=== PATIENT | male | born 1935 | race Caucasian/White ===

== ENCOUNTER → 2016-08-12 | Outpatient (CLI) | payer OTHER ==
[~2016-08-12] MED LIST: BISA10SU45 RE; CHOL1TAB42 PO; FEXO-42 PO; FOLI1TAB6 PO; HYD1TP PR; HYDR12.527 PO; LUBI8CAP4 PO; METH2.5T3 PO; NOR10T PO; PRE5T PO; TAM04C PO; TEMA15CA91 PO
[2016-08-12 13:49] LABS: Basophils # (auto) 0 uL; Basophils % (auto) 0.3 % (0.0-2.0); Eosinophils # (auto) 0.1 uL; Eosinophils % (auto) 1.3 % (0.0-7.0); Hematocrit 44.9 % (41.0-53.0); Hemoglobin 14.5 g/dL (13.5-17.5); Lymphocytes # (auto) 1.1 uL; Lymphocytes % (auto) 14.5 % (10.0-50.0); Mean Corpuscular Hemoglobin 30.2 pg (28.0-32.0); Mean Corpuscular Hgb Conc. 32.4 g/dL (32.0-36.0); Mean Corpuscular Volume 93.2 fL (80.0-100.0); Mean Platelet Volume 7.9 fL (7.4-10.4); Monocytes # (auto) 0.6 uL; Monocytes % (auto) 7.3 % (0.0-12.0); Neutrophils # (auto) 6.1 uL; Neutrophils % (auto) 76.6 % (37.0-80.0); Platelet Count (auto) 225 10^3/uL (140-450); Red Cell Distribution Width 15.5 % (11.6-16.0); White Blood Cell 7.9 10^3/uL (4.4-10.8)
[2016-08-12 14:01] LABS: Albumin 3.7 g/dL (3.4-5.0); BUN/Creatinine Ratio 19.7; Bilirubin, Total 0.7 mg/dL (0.2-1.0); Calcium 8.9 mg/dL (8.5-10.1); Potassium 3.7 mmol/L (3.5-5.1); Total Protein 6.5 g/dL (6.4-8.2)
[2016-08-12 14:02] LABS: INR 1.04 (0.9-1.15); Partial Thromboplastin Time 25.9 sec (22.64-33.71); Prothrombin Time 10.7 sec (9.37-12.3)
== END | disposition home or self-care (01) ==
LOC: LAB 13:20
PROVIDERS: ATTEND Internal Medicine Cardiovascular Disease
DX: I44.39 Other atrioventricular block (principal); Z01.818 Encounter for other preprocedural examination
CPT/HCPCS: 36415; 80053; 85025; 85049; 85610; 85730

== ENCOUNTER → 2016-11-08 | Outpatient (CLI) | payer OTHER ==
[~2016-11-08] MED LIST changes: +DICL1GEL26 TD; -HYDR12.527 PO; +LINA290C OR; -LUBI8CAP4 PO
[2016-11-08 10:42] LABS: Urine RBC None Seen /hpf (0 - 3)
[2016-11-08 11:05] LABS: Urine Bilirubin Negative (Negative); Urine Blood Negative /uL (Negative); Urine Color Yellow (Yellow); Urine Glucose Normal (Normal); Urine Ketone Negative (Negative); Urine Mucus FEW (None Seen); Urine Nitrite Negative (Negative); Urine Squamous Epithelial Cell FEW /hpf (<5); Urine Urobilinogen Normal (Negative)
[2016-11-08 11:06] LABS: Basophils # (auto) 0 uL; Basophils % (auto) 0.4 % (0.0-2.0); Eosinophils # (auto) 0.1 uL; Eosinophils % (auto) 1.4 % (0.0-7.0); Hematocrit 49.5 % (41.0-53.0); Hemoglobin 15.8 g/dL (13.5-17.5); Lymphocytes # (auto) 1.4 uL; Lymphocytes % (auto) 17.6 % (10.0-50.0); Mean Corpuscular Hemoglobin 30.7 pg (28.0-32.0); Mean Corpuscular Volume 95.9 fL (80.0-100.0); Mean Platelet Volume 8.5 fL (7.4-10.4); Monocytes # (auto) 0.5 uL; Monocytes % (auto) 5.9 % (0.0-12.0); Neutrophils # (auto) 5.8 uL; Neutrophils % (auto) 74.7 % (37.0-80.0); Platelet Count (auto) 237 10^3/uL (140-450); Red Cell Distribution Width 14.8 % (11.6-16.0); White Blood Cell 7.8 10^3/uL (4.4-10.8)
[2016-11-08 11:13] LABS: BUN/Creatinine Ratio 15.8; Bilirubin, Total 0.7 mg/dL (0.2-1.0); Calcium 9.3 mg/dL (8.5-10.1); Potassium 3.9 mmol/L (3.5-5.1); Total Protein 7.4 g/dL (6.4-8.2)
== END | disposition home or self-care (01) ==
LOC: LAB 10:22
PROVIDERS: ATTEND Internal Medicine
DX: Z00.00 Encounter for general adult medical examination without abnormal findings (principal); M51.16 Intervertebral disc disorders with radiculopathy, lumbar region; J44.1 Chronic obstructive pulmonary disease with (acute) exacerbation
CPT/HCPCS: 36415; 80053; 80061; 81001; 82306; 84153; 84154; 84443; 85025; G0434

== ENCOUNTER 2016-11-17 06:17 | Inpatient (IN) | payer OTHER ==
[~2016-11-17] VITALS: Ht 172.7 cm; Wt 82.2 kg
[2016-11-17 07:40] LABS: Basophils # (auto) 0 uL; Basophils % (auto) 0.5 % (0.0-2.0); Eosinophils # (auto) 0.1 uL; Eosinophils % (auto) 1.9 % (0.0-7.0); Hematocrit 47.6 % (41.0-53.0); Hemoglobin 15.3 g/dL (13.5-17.5); Lymphocytes # (auto) 1.5 uL; Lymphocytes % (auto) 19.9 % (10.0-50.0); Mean Corpuscular Hemoglobin 30.3 pg (28.0-32.0); Mean Corpuscular Hgb Conc. 32.2 g/dL (32.0-36.0); Mean Corpuscular Volume 94.3 fL (80.0-100.0); Mean Platelet Volume 8.6 fL (7.4-10.4); Monocytes # (auto) 0.6 uL; Monocytes % (auto) 7.7 % (0.0-12.0); Neutrophils # (auto) 5.3 uL; Platelet Count (auto) 221 10^3/uL (140-450); White Blood Cell 7.6 10^3/uL (4.4-10.8)
[2016-11-17] MEDS ORDERED: ONDANSETRON HCL 4 MG/2 ML VIAL IV ONE (07:45)
[2016-11-17] MEDS ORDERED: ASPirin 81 mg TAB PO ONE (07:45)
[2016-11-17 07:54] LABS: Albumin 3.7 g/dL (3.4-5.0); Alkaline Phosphatase 65 U/L (45-117); Amylase 34 U/L (25-115); Anion Gap 8 (5-15); Aspartate Aminotransferase 27 U/L (15-37); BUN/Creatinine Ratio 16.4; Bilirubin, Total 0.5 mg/dL (0.2-1.0); Blood Urea Nitrogen 12 mg/dL (7-18); Carbon Dioxide 33 mmol/L (21-32); Chloride 104 mmol/L (98-107); GFR African American 132 mL/min; GFR Non-African American 109 mL/min; Glucose 107 mg/dL (74-106); Potassium 3.5 mmol/L (3.5-5.1); Sodium 145 mmol/L (136-145); Total Protein 6.9 g/dL (6.4-8.2)
[2016-11-17 08:06] LABS: INR 1.06 (0.9-1.15); Partial Thromboplastin Time 27.1 sec (22.64-33.71); Prothrombin Time 11.4 sec (9.37-12.3)
[2016-11-17 08:53] LABS: B-Type Natriuretic Peptide 42.65 pg/mL (0-100)
[2016-11-17 09:03] LABS: Temperature: 22.5 C (20.0-25.0)
[2016-11-17] MEDS ORDERED: NITROGLYCERIN 0.4 MG SL TAB SL PRN (09:15)
[2016-11-17] MEDS ORDERED: METHOTREXATE 2.5 MG TAB PO SCH (09:15)
[2016-11-17] MEDS ORDERED: DICLOFENAC SODIUM 1% TD SCH (09:15)
[2016-11-17] MEDS ORDERED: MORPHINE SULF INJ 2 MG/ML SYRINGE 1ML IV PRN (09:15)
[2016-11-17] MEDS ORDERED: LORazepam 0.5 MG TAB PO PRN (09:15)
[2016-11-17] MEDS ORDERED: TEMAZEPAM 15 MG CAP PO PRN (09:15)
[2016-11-17] MEDS ORDERED: [UNRECOGNIZED DRUG - REMARK] PO SCH (10:00)
[2016-11-17] MEDS ORDERED: FAMOTIDINE 20 MG TAB PO SCH (10:00)
[2016-11-17] MEDS ORDERED: LINACLOTIDE BASE OR SCH (10:00)
[2016-11-17] MEDS ORDERED: CHOLECALCIFEROL 2000 UNIT PO SCH (10:00)
[2016-11-17 10:03] LABS: Urine Bilirubin Negative (Negative); Urine Blood Negative /uL (Negative); Urine Color Yellow (Yellow); Urine Glucose Normal (Normal); Urine Ketone TRACE (Negative); Urine Mucus MANY (None Seen); Urine Nitrite Negative (Negative); Urine RBC 3 /hpf (0 - 3); Urine Squamous Epithelial Cell FEW /hpf (<5); Urine Urobilinogen Normal (Negative)
[2016-11-17] MEDS: ASPirin 81 mg TAB PO SCH (10:15)
[2016-11-17] MEDS: FEXOFENADINE HCL 60 MG TAB PO SCH (10:15)
[2016-11-17] MEDS: FOLIC ACID 1 MG TAB PO SCH (10:15)
[2016-11-17] MEDS: CHOLECALCIFEROL (VITD3) 1,000 UNIT TAB PO SCH (10:15)
[2016-11-17] MEDS: TAMSULOSIN HYDROCHLORIDE 0.4 MG CAP PO SCH ×2 (10:15→21:58)
[2016-11-17] MEDS ORDERED: LACT10SO PO (11:01)
[2016-11-17] MEDS ORDERED: LUBI24CA6 PO (11:01)
[2016-11-17] MEDS: DICLOFENAC SODIUM 1% TOP SCH ×3 (12:00→21:59)
[2016-11-17] MEDS: SODIUM CHLORIDE 0.9% 1,000 ML IV SCH (12:00)
[2016-11-17 13:00] VITALS: BP 137/92
[2016-11-17] MEDS: predniSONE 5 MG TAB PO ONE ×2 (14:00→14:56)
[2016-11-17] MEDS ORDERED: PANTOPRAZOLE 40 MG TAB PO ONE (14:00)
[2016-11-17] MEDS ORDERED: predniSONE 1 MG TAB PO ONE (14:45)
[2016-11-17] MEDS: SIMETHICONE 40 MG/0.6 ML ORAL DROP PO SCH ×3 (14:55→21:59)
[2016-11-17 17:00] VITALS: BP 119/77
[2016-11-17] MEDS: ACETAMINOPHEN 500 MG TAB PO PRN (17:13)
[2016-11-17] MEDS: ATORVASTATIN 20 MG TAB PO SCH (21:59)
[2016-11-17 22:00] VITALS: BP 134/74
[2016-11-18] VITALS (7 sets, daily range): BP systolic 108–125; BP diastolic 59–79
[2016-11-18] MEDS: SODIUM CHLORIDE 0.9% 1,000 ML IV SCH (02:23)
[2016-11-18] MEDS: MORPHINE SULFATE 4 MG/ML SYRG IV PRN ×5 (02:31→23:04)
[2016-11-18] MEDS: ACETAMINOPHEN 500 MG TAB PO PRN (05:03)
[2016-11-18] MEDS: HYDROcodone-ACET 5/325MG TAB PO PRN (05:04)
[2016-11-18] MEDS: DICLOFENAC SODIUM 1% TOP SCH ×4 (05:59→22:00)
[2016-11-18] MEDS: SIMETHICONE 40 MG/0.6 ML ORAL DROP PO SCH ×4 (05:59→22:12)
[2016-11-18] MEDS: predniSONE 1 MG TAB PO SCH (06:50)
[2016-11-18] MEDS ORDERED: PATIENTS OWN MEDICATION (Folic Acid 1 MG) PO SCH ×2 (07:00)
[2016-11-18] MEDS ORDERED: predniSONE 5 MG TAB PO SCH (07:00)
[2016-11-18] MEDS: ASPirin 81 mg TAB PO SCH (09:55)
[2016-11-18] MEDS: PANTOPRAZOLE 40 MG TAB PO SCH (09:56)
[2016-11-18] MEDS: CHOLECALCIFEROL (VITD3) 1,000 UNIT TAB PO SCH (09:56)
[2016-11-18] MEDS: TAMSULOSIN HYDROCHLORIDE 0.4 MG CAP PO SCH ×2 (09:56→22:11)
[2016-11-18] MEDS: FOLIC ACID 1 MG TAB PO SCH (09:56)
[2016-11-18] MEDS: FEXOFENADINE HCL 60 MG TAB PO SCH (09:56)
[2016-11-18] MEDS: GABAPENTIN 300 MG CAP PO SCH ×2 (14:14→22:12)
[2016-11-18] MEDS: ATORVASTATIN 20 MG TAB PO SCH (22:11)
[2016-11-19 05:02] VITALS: BP 98/50
[2016-11-19] MEDS: SIMETHICONE 40 MG/0.6 ML ORAL DROP PO SCH ×4 (05:53→22:34)
[2016-11-19] MEDS: DICLOFENAC SODIUM 1% TOP SCH ×4 (05:53→22:34)
[2016-11-19] MEDS: GABAPENTIN 300 MG CAP PO SCH ×3 (05:54→22:34)
[2016-11-19] MEDS: predniSONE 1 MG TAB PO SCH (06:48)
[2016-11-19 08:00] VITALS: BP 127/72
[2016-11-19 09:03] VITALS: BP 127/72
[2016-11-19] MEDS: CHOLECALCIFEROL (VITD3) 1,000 UNIT TAB PO SCH (10:27)
[2016-11-19] MEDS: MORPHINE SULFATE 4 MG/ML SYRG IV PRN ×3 (10:27→23:10)
[2016-11-19] MEDS: TAMSULOSIN HYDROCHLORIDE 0.4 MG CAP PO SCH ×2 (10:28→22:33)
[2016-11-19] MEDS: FEXOFENADINE HCL 60 MG TAB PO SCH (10:28)
[2016-11-19] MEDS: FOLIC ACID 1 MG TAB PO SCH (10:28)
[2016-11-19] MEDS: ASPirin 81 mg TAB PO SCH (10:28)
[2016-11-19] MEDS: PANTOPRAZOLE 40 MG TAB PO SCH (10:28)
[2016-11-19 13:00] VITALS: BP 124/74
[2016-11-19 16:43] VITALS: BP 104/64
[2016-11-19 21:32] VITALS: BP 112/63
[2016-11-19] MEDS: ATORVASTATIN 20 MG TAB PO SCH (22:33)
[2016-11-20] VITALS (7 sets, daily range): BP systolic 102–130; BP diastolic 66–76
[2016-11-20] MEDS: MORPHINE SULFATE 4 MG/ML SYRG IV PRN ×2 (03:15→08:58)
[2016-11-20] MEDS: DICLOFENAC SODIUM 1% TOP SCH ×4 (06:00→21:16)
[2016-11-20] MEDS: SIMETHICONE 40 MG/0.6 ML ORAL DROP PO SCH ×3 (06:45→21:03)
[2016-11-20] MEDS: GABAPENTIN 300 MG CAP PO SCH ×3 (06:45→21:03)
[2016-11-20] MEDS: predniSONE 1 MG TAB PO SCH (06:55)
[2016-11-20] MEDS: ASPirin 81 mg TAB PO SCH (10:18)
[2016-11-20] MEDS: CHOLECALCIFEROL (VITD3) 1,000 UNIT TAB PO SCH (10:19)
[2016-11-20] MEDS: TAMSULOSIN HYDROCHLORIDE 0.4 MG CAP PO SCH ×2 (10:19→21:03)
[2016-11-20] MEDS: FOLIC ACID 1 MG TAB PO SCH (10:19)
[2016-11-20] MEDS: PANTOPRAZOLE 40 MG TAB PO SCH (10:19)
[2016-11-20] MEDS: FEXOFENADINE HCL 60 MG TAB PO SCH (10:19)
[2016-11-20] MEDS: ALBUTEROL SULF 2.5 MG/0.5ML(0.5%) NEB SOLN NEB SCH ×2 (10:49→18:11)
[2016-11-20] MEDS: IPRATROPIUM BROM 0.5 MG/2.5ML INH SOL NEB SCH ×2 (10:49→18:11)
[2016-11-20] MEDS: ACETYLCYSTEINE 10 %(100MG/ML) SOL 4ML NEB SCH ×2 (18:11→22:00)
[2016-11-20] MEDS: ATORVASTATIN 20 MG TAB PO SCH (21:03)
[2016-11-21] MEDS: MORPHINE SULFATE 4 MG/ML SYRG IV PRN ×2 (03:24→09:59)
[2016-11-21] MEDS: HYDROcodone-ACET 5/325MG TAB PO PRN (04:27)
[2016-11-21 05:54] VITALS: BP 108/67
[2016-11-21] MEDS: ALBUTEROL SULF 2.5 MG/0.5ML(0.5%) NEB SOLN NEB SCH ×3 (05:54→14:13)
[2016-11-21] MEDS: ACETYLCYSTEINE 10 %(100MG/ML) SOL 4ML NEB SCH ×4 (05:54→14:14)
[2016-11-21] MEDS: IPRATROPIUM BROM 0.5 MG/2.5ML INH SOL NEB SCH ×3 (05:54→14:13)
[2016-11-21] MEDS: DICLOFENAC SODIUM 1% TOP SCH ×2 (06:00→12:00)
[2016-11-21] MEDS: SIMETHICONE 40 MG/0.6 ML ORAL DROP PO SCH ×2 (06:21→12:00)
[2016-11-21] MEDS: predniSONE 1 MG TAB PO SCH (06:22)
[2016-11-21] MEDS: GABAPENTIN 300 MG CAP PO SCH ×2 (06:22→14:00)
[2016-11-21 08:00] VITALS: BP 113/67
[2016-11-21] MEDS: FOLIC ACID 1 MG TAB PO SCH (09:47)
[2016-11-21] MEDS: TAMSULOSIN HYDROCHLORIDE 0.4 MG CAP PO SCH (09:47)
[2016-11-21] MEDS: PANTOPRAZOLE 40 MG TAB PO SCH (09:47)
[2016-11-21] MEDS: ASPirin 81 mg TAB PO SCH (09:48)
[2016-11-21 10:00] VITALS: BP 113/67
[2016-11-21] MEDS: CHOLECALCIFEROL (VITD3) 1,000 UNIT TAB PO SCH (10:00)
[2016-11-21] MEDS: FEXOFENADINE HCL 60 MG TAB PO SCH (10:00)
[2016-11-21 11:18] VITALS: BP 113/67
== END 2016-11-21 14:45 | disposition home or self-care (01) | DRG 389 ==
LOC: ER 06:17 → EDBD 06:17 → TELE 06:18 → TELE-E-ADS 10:22 → TELE-CENTR 12:09 → CENTRAL 11-19 04:18
PROVIDERS: ADMIT Internal Medicine; ATTEND Internal Medicine
DX: K56.41 Fecal impaction (principal); J96.10 Chronic respiratory failure, unspecified whether with hypoxia or hypercapnia; K58.9 Irritable bowel syndrome, unspecified; J44.9 Chronic obstructive pulmonary disease, unspecified; K21.9 Gastro-esophageal reflux disease without esophagitis; E78.5 Hyperlipidemia, unspecified; K57.30 Diverticulosis of large intestine without perforation or abscess without bleeding; I11.9 Hypertensive heart disease without heart failure; M47.816 Spondylosis without myelopathy or radiculopathy, lumbar region; G89.29 Other chronic pain; I70.0 Atherosclerosis of aorta; E66.9 Obesity, unspecified; N40.0 Benign prostatic hyperplasia without lower urinary tract symptoms; K76.0 Fatty (change of) liver, not elsewhere classified; M54.9 Dorsalgia, unspecified; M06.9 Rheumatoid arthritis, unspecified; Z95.0 Presence of cardiac pacemaker; Z87.891 Personal history of nicotine dependence; Z80.9 Family history of malignant neoplasm, unspecified; Z86.79 Personal history of other diseases of the circulatory system; Z79.899 Other long term (current) drug therapy; Z88.1 Allergy status to other antibiotic agents; Z88.2 Allergy status to sulfonamides; Z68.27 Body mass index [BMI] 27.0-27.9, adult
CPT/HCPCS: 36415; 71020; 72100; 74176; 80053; 81001; 82150; 82378; 82550; 83690; 83735; 83880; 84484; 85025; 85379; 85610; 85652; 85730; 86141; 87070; 87205; 93005; 94640; 94761; 96374; J2405

== ENCOUNTER → 2017-01-03 | Outpatient (CLI) | payer OTHER ==
[~2017-01-03] MED LIST changes: -BISA10SU45 RE; -FEXO-42 PO; -HYD1TP PR; +LACT10SO3 PO; +LUBI24CA6 PO
== END | disposition home or self-care (01) ==
LOC: LAB 09:15
PROVIDERS: ATTEND Internal Medicine
DX: R91.1 Solitary pulmonary nodule (principal)
CPT/HCPCS: 36415; 82565; 84520

== ENCOUNTER 2017-01-26 21:14 | Emergency (ER) | payer OTHER ==
[~2017-01-26] VITALS: Ht 172.7 cm; Wt 83.0 kg
[2017-01-27] MEDS ORDERED: HYDROmorphone HCL 2 MG/ML VL IV ONE ×2 (02:45→05:00)
[2017-01-27 03:12] LABS: Basophils # (auto) 0 uL; Basophils % (auto) 0.4 % (0.0-2.0); CONDITION Y; Eosinophils # (auto) 0.2 uL; Eosinophils % (auto) 2.5 % (0.0-7.0); Hemoglobin 14.9 g/dL (13.5-17.5); Lymphocytes # (auto) 1.2 uL; Lymphocytes % (auto) 17.1 % (10.0-50.0); Mean Corpuscular Hemoglobin 30.3 pg (28.0-32.0); Mean Corpuscular Hgb Conc. 32.3 g/dL (32.0-36.0); Mean Corpuscular Volume 93.7 fL (80.0-100.0); Mean Platelet Volume 8.7 fL (7.4-10.4); Monocytes # (auto) 0.7 uL; Neutrophils # (auto) 4.7 uL; Platelet Count (auto) 188 10^3/uL (140-450); Red Cell Distribution Width 14.7 % (11.6-16.0); White Blood Cell 6.8 10^3/uL (4.4-10.8)
[2017-01-27] MEDS ORDERED: ONDANSETRON HCL 4 MG/2 ML VIAL IV ONE (03:15)
[2017-01-27 03:33] LABS: Albumin 3.5 g/dL (3.4-5.0); BUN/Creatinine Ratio 26.7; Calcium 8.4 mg/dL (8.5-10.1); Potassium 3.6 mmol/L (3.5-5.1)
[2017-01-27 03:35] LABS: Bilirubin, Total 0.4 mg/dL (0.2-1.0); Total Protein 6.9 g/dL (6.4-8.2)
[2017-01-27 07:02] VITALS: BP 116/66
== END 2017-01-27 08:27 | disposition home or self-care (01) ==
LOC: EDBD 21:14 → ER 21:18
DX: B02.9 Zoster without complications (principal); R51 Headache; M54.2 Cervicalgia; M79.2 Neuralgia and neuritis, unspecified; J44.9 Chronic obstructive pulmonary disease, unspecified; K21.9 Gastro-esophageal reflux disease without esophagitis; I10 Essential (primary) hypertension; E78.5 Hyperlipidemia, unspecified; Z87.891 Personal history of nicotine dependence; Z88.1 Allergy status to other antibiotic agents; Z88.2 Allergy status to sulfonamides
CPT/HCPCS: 36415; 71250; 74176; 80053; 83690; 85025; 96374; 96375; 96376; 99285; J1170; J2405

== ENCOUNTER 2017-10-03 06:47 | Day surgery (SDC) | payer OTHER ==
[2017-09-28 11:29] LABS: Basophils # (auto) 0 uL; Basophils % (auto) 0.6 % (0.0-2.0); Eosinophils # (auto) 0.1 uL; Eosinophils % (auto) 1.7 % (0.0-7.0); Hematocrit 41.6 % (41.0-53.0); Hemoglobin 13.5 g/dL (13.5-17.5); Lymphocytes % (auto) 14.8 % (10.0-50.0); Mean Corpuscular Hemoglobin 30.8 pg (28.0-32.0); Mean Corpuscular Hgb Conc. 32.4 g/dL (32.0-36.0); Mean Corpuscular Volume 94.8 fL (80.0-100.0); Monocytes # (auto) 0.7 uL; Neutrophils # (auto) 4.7 uL; Neutrophils % (auto) 72.9 % (37.0-80.0); Nucleated Red Blood Cells % 0.1 %; Platelet Count (auto) 157 10^3/uL (140-450); Red Blood Cells 4.38 10^6/uL (4.5-5.90); Red Cell Distribution Width 14.2 % (11.8-14.3); White Blood Cell 6.5 10^3/uL (4.4-10.8)
[2017-09-28 11:46] LABS: Albumin 3.5 g/dL (3.4-5.0); BUN/Creatinine Ratio 18.8; Bilirubin, Total 0.4 mg/dL (0.2-1.0); Calcium 8.7 mg/dL (8.5-10.1); INR 0.99 (0.9-1.15); Partial Thromboplastin Time 27.3 sec (22.64-33.71); Potassium 3.9 mmol/L (3.5-5.1); Prothrombin Time 10.8 sec (9.37-12.3); Total Protein 6.5 g/dL (6.4-8.2)
[~2017-10-03] VITALS: Ht 170.2 cm; Wt 81.6 kg
[~2017-10-03 06:47] MED LIST changes: +BISA-13 PO; -DICL1GEL26 TD; -LACT10SO3 PO; -LINA290C OR; +LOVA20TA4 PO; -LUBI24CA6 PO; +PYRI1TAB11 PO; -TEMA15CA91 PO
[2017-10-03] MEDS ORDERED: ceFAZolin 1GM/50ML 50 ML IV ONE (07:03)
[2017-10-03] MEDS ORDERED: MIDAZOLAM HCL 1MG/1ML-2 ML VIAL ONE (07:52)
[2017-10-03] MEDS ORDERED: ONDANSETRON HCL 4 MG/2 ML VIAL ONE (07:53)
[2017-10-03] MEDS ORDERED: SODIUM CHLORIDE LOCK 10 ML ONE (07:53)
[2017-10-03] MEDS ORDERED: PROPOFOL 10 MG/ML 20 ML IV ONE (07:53)
[2017-10-03] MEDS ORDERED: fentaNYL CITRATE 100 MCG/2 ML VL ONE (07:53)
[2017-10-03] MEDS ORDERED: HYDROmorphone HCL 2 MG/ML VL IV PRN (09:00)
[2017-10-03] MEDS ORDERED: METOCLOPRAMIDE HCL 5MG/ml INJ 2ml VIAL IV ONE (09:00)
[2017-10-03 10:30] VITALS: BP 110/72
[2017-10-31] MEDS ORDERED: PERCOT PO (15:44)
[2017-10-31] MEDS ORDERED: CIPR-217 PO (15:44)
== END 2017-10-03 10:40 | disposition home or self-care (01) ==
LOC: SUR 06:47
PROVIDERS: ATTEND Urology
DX: N20.1 Calculus of ureter (principal); J44.9 Chronic obstructive pulmonary disease, unspecified; Z95.0 Presence of cardiac pacemaker; M06.9 Rheumatoid arthritis, unspecified; Z88.1 Allergy status to other antibiotic agents; Z88.2 Allergy status to sulfonamides; I25.10 Atherosclerotic heart disease of native coronary artery without angina pectoris; E66.9 Obesity, unspecified
CPT/HCPCS: 36415; 50590; 80053; 85025; 85610; 85730; J0690; J2250; J2405; J2704; J3010

== ENCOUNTER 2018-02-15 05:54 | Day surgery (SDC) | payer OTHER ==
[~2018-02-15] VITALS: Ht 30.5 cm; Wt 0.5 kg
[~2018-02-15 05:54] MED LIST changes: +ALBUAER3 IN; -CHOL1TAB42 PO; +CHOL20007 PO; +IPRIH IN; +MET25T PO; -PYRI1TAB11 PO; +SOTA80TA PO
[2018-02-15] MEDS ORDERED: IOHEXOL 180 MG/ML 20ML VIAL IJ ONE (06:52)
[2018-02-15] MEDS ORDERED: IOHEXOL 300 MG/ML 100ML BOTTLE IJ ONE (06:52)
[2018-02-15] MEDS ORDERED: fentaNYL CITRATE 100 MCG/2 ML VL ONE (07:02)
[2018-02-15] MEDS ORDERED: PHENYLEPHRINE HCL 10 MG/ML VL ONE (07:02)
[2018-02-15] MEDS ORDERED: ePHEDrine SULFATE 50 MG/ML AMP ONE (07:02)
[2018-02-15] MEDS ORDERED: ROCURONIUM 10MG/ML 10ML VIAL IV ONE (07:03)
[2018-02-15] MEDS ORDERED: LIDOCAINE HCL 2 %PF INJ 10ML AMP IJ ONE (07:03)
[2018-02-15] MEDS ORDERED: ETOMIDATE (2MG/ML) 20ML VIAL IV ONE (07:04)
[2018-02-15] MEDS ORDERED: ceFAZolin 1GM/50ML 50 ML IV ONE (07:16)
[2018-02-15] MEDS ORDERED: GLYCOPYRROLATE 0.2 MG/ML 1ML VIAL ONE (08:23)
[2018-02-15] MEDS ORDERED: DEXAMETHASONE SOD PHOS 10MG/1ML VIAL INJ ONE (08:23)
[2018-02-15] MEDS ORDERED: NEOSTIGMINE 1 MG/ML INJ (10mg/10ML VIAL) ONE (08:23)
[2018-02-15] MEDS ORDERED: ONDANSETRON HCL 4 MG/2 ML VIAL IV ONE (08:45)
[2018-02-15] MEDS ORDERED: NALOXONE HCL 0.4 MG/ML VIAL IV PRN (08:45)
[2018-02-15] MEDS ORDERED: ONDANSETRON HCL 4 MG/2 ML VIAL ONE (08:50)
[2018-02-15] MEDS: HYDROmorphone HCL 2 MG/ML VL IV PRN ×4 (08:55→09:30)
[2018-02-15 09:49] VITALS: BP 131/82
== END 2018-02-15 09:59 | disposition home or self-care (01) ==
LOC: SUR 05:54
PROVIDERS: ATTEND Urology
DX: N21.0 Calculus in bladder (principal); N13.30 Unspecified hydronephrosis; I50.9 Heart failure, unspecified; I10 Essential (primary) hypertension; J44.9 Chronic obstructive pulmonary disease, unspecified; I25.10 Atherosclerotic heart disease of native coronary artery without angina pectoris; N40.0 Benign prostatic hyperplasia without lower urinary tract symptoms; M81.0 Age-related osteoporosis without current pathological fracture; M06.9 Rheumatoid arthritis, unspecified; F10.21 Alcohol dependence, in remission; I71.4 Abdominal aortic aneurysm, without rupture; J43.9 Emphysema, unspecified; Z80.8 Family history of malignant neoplasm of other organs or systems; Z95.0 Presence of cardiac pacemaker; Z79.899 Other long term (current) drug therapy; Z88.2 Allergy status to sulfonamides; Z95.1 Presence of aortocoronary bypass graft
CPT/HCPCS: 52005; 52332; 74018; 76000; C1769; C2617; J0690; J1100; J1170; J2370; J2405; J3010; Q9967; Q9965